=== PATIENT | male | born 1995 | race Caucasian/White ===

== ENCOUNTER 2022-01-13 14:31 | Emergency (ER) | payer MEDICAID ==
[~2022-01-13] VITALS: Ht 172.7 cm; Wt 75.0 kg
[2022-01-13 14:56] VITALS: BP 132/80
[2022-01-13] MEDS ORDERED: ibuprofen tablet 400 MG TABLET PO ONE (16:30)
[2022-01-13] MEDS ORDERED: IBUP-1986 PO (16:42)
== END 2022-01-13 17:01 | disposition home or self-care (01) ==
LOC: ER 14:32
DX: S62.001A Unspecified fracture of navicular [scaphoid] bone of right wrist, initial encounter for closed fracture (principal); M25.531 Pain in right wrist; Z72.89 Other problems related to lifestyle; Z79.899 Other long term (current) drug therapy; X58.XXXA Exposure to other specified factors, initial encounter; Y93.89 Activity, other specified; Y92.89 Other specified places as the place of occurrence of the external cause; Y99.8 Other external cause status
CPT/HCPCS: 29125; 73110; 73130; 99284